=== PATIENT | female | born 1955 | race Caucasian/White ===

== ENCOUNTER 2020-11-14 06:21 | Day surgery (SDC) | payer OTHER ==
[~2020-11-14] VITALS: Ht 172.7 cm; Wt 111.1 kg
[~2020-11-14 06:21] MED LIST: ALDACTONE25 MG PO; ALLEGRA ALLERG180 MG PO; ASA81BEC PO; BENADRYL25 MG PO; COUMADIN 5 MG TA5 M1 PO; EXCEDRIN MIGRA1 EAC1 PO; FLONASE 0.05%50 MCG NARES; LOVENOX; OMEPRAZOLE 20 M20 M1 PO; PREDNISONE 20 M20 MG PO; SIMVASTATIN10 MG PO; SUDAFED30 MG PO; TOPROL XL25 MG PO; ZANTAC 150MG T150 M1 PO
[2020-11-14 07:54] VITALS: BP 151/91
[2020-11-14] MEDS ORDERED: HYDROCODON-ACE1 EAC7 PO (10:53)
[2020-11-14 11:42] VITALS: BP 151/91
--- NOTE | 2020-11-16 14:49 | O ---
[facility] [place] [address] OPERATIVE REPORT Name: KAITLYN CASE Room #: DEP [facility].#: [id number] Admission: 11/14/20 Attend Phys: Matt Winchester MD Discharge: 11/14/20 Date of : 53 Report #: [id number] THIS REPORT FOR: cc: Katherine Hernandez MD, Cora A. MD Franey,Matt Calix MD ~ DOC #: [id number] cc: MD Matt Vance MD DATE OF SERVICE: 11/14/[address] Matt Winchester and Dr. Katherine Hernandez at [facility]. PREOPERATIVE DIAGNOSIS: Incarcerated ventral incisional hernia. POSTOPERATIVE DIAGNOSIS: Incarcerated ventral incisional hernia. OPERATION: Repair of an incarcerated ventral incisional hernia with Ventralex mesh. SURGEON: Matt Winchester MD. ANESTHESIA: General. DESCRIPTION OF PROCEDURE: The patient was brought to the operating room, placed on the table in the supine position. Sequential compression devices were in place for DVT prophylaxis. The patient underwent IV sedation. The abdomen was then prepped and draped in a sterile fashion. Skin and subcutaneous tissue overlying the supraumbilical area was then infiltrated with 0.5% Marcaine 1% Xylocaine with epinephrine. A transverse supraumbilical skin incision was performed using #10 scalpel blade. Hemostasis obtained using electrocautery. Dissection was carried down through subcutaneous tissue to the hernia sac, which was dissected free. There was some incarcerated omentum within this hernia sac and that was opened and the omentum was dissected free and reduced back into the abdomen. The hernia sac was then excised. There were several other smaller defects on either side of this larger defect. Those were also dissected free. They were opened and the contents reduced back into the abdomen. I dissected free around the fascial opening several numerous adhesions around that area and this was dissected free. I then placed a large Ventralex hernia mesh patch intraabdominally which was then secured transfascially in a horizontal mattress fashion using 0 Prolene sutures. The fascia was then closed over the mesh using interrupted [id number] #1 Prolene sutures. The mesh tails were then cut and secured superiorly and inferiorly with simple interrupted 2-0 Vicryl suture. The area was further infiltrated with the local mixture. While attempting to [address] [address] OPERATIVE REPORT Name: CASEKAITLYN Room #: DEP [facility] [place]#: [id number] Admission: 11/14/20 Attend Phys: Matt Winchester MD Discharge: 11/14/20 Date of : 53 Report #: [id number] sew the mesh in, the patient was not able to be relaxed enough for adequate exposure and we did have to undergo a general endotracheal anesthesia. The deep and superficial subcutaneous tissue was then reapproximated using simple interrupted 2-0 chromic sutures and the skin then closed with a running 4-0 subcuticular Vicryl stitch. The wound was then dressed with Dermabond, Telfa, 4 x 4 gauze, sponge, and tape. An abdominal binder was then placed around the patient. The patient was then awakened from the general endotracheal anesthesia, extubated, and taken to the recovery room in good condition. Estimated blood loss was approximately 10 mL and the patient tolerated the procedure well. All sponge, lap and instrument counts were correct x2. Matt Winchester MD TAF/KDA <ELECTRONICALLY SIGNED> By: Matt Winchester MD 11/16/20 [id number] Matt Winchester MD /nt
== END 2020-11-14 13:15 | disposition home or self-care (01) ==
LOC: OR 06:21 → TBA 06:22 → OR 12:31
PROVIDERS: ATTEND Surgery
DX: K43.0 Incisional hernia with obstruction, without gangrene (principal); M19.90 Unspecified osteoarthritis, unspecified site; K21.9 Gastro-esophageal reflux disease without esophagitis; Z98.890 Other specified postprocedural states; Z79.899 Other long term (current) drug therapy; Z86.718 Personal history of other venous thrombosis and embolism; Z79.01 Long term (current) use of anticoagulants; Z86.711 Personal history of pulmonary embolism; Z98.51 Tubal ligation status; Z88.8 Allergy status to other drugs, medicaments and biological substances; Z88.2 Allergy status to sulfonamides
CPT/HCPCS: 50010; 50101; 50386; 50417; 50621; 54118; 56524; 56525; 56526; 62110; 62900; 70005